=== PATIENT | male | born 1980 | race Caucasian/White ===

== ENCOUNTER → 2017-03-30 | Outpatient (CLI) | payer BC | LOC: WCC 09:05 | DX: T23.241A Burn of second degree of multiple right fingers (nail), including thumb, initial encounter (principal); T23.201A Burn of second degree of right hand, unspecified site, initial encounter; T31.0 Burns involving less than 10% of body surface; F17.200 Nicotine dependence, unspecified, uncomplicated | CPT/HCPCS: G0463 ==

== ENCOUNTER → 2017-04-05 | Outpatient (CLI) | payer BC | LOC: WCC 12:41 | DX: T23.001A Burn of unspecified degree of right hand, unspecified site, initial encounter (principal); T31.0 Burns involving less than 10% of body surface | CPT/HCPCS: G0463 ==

== ENCOUNTER 2017-12-30 10:38 | Day surgery (SDC) | payer BC ==
[~2017-12-30] VITALS: Ht 177.8 cm; Wt 78.9 kg
[2017-12-30] MEDS ORDERED: FLOMAX 0.40.4 MG/CAP PO (12:56)
[2017-12-30] MEDS ORDERED: LORTAB PO (12:57)
[2017-12-30 13:12] VITALS: BP 134/88; PULSE 63; TEMP 97.6
[2017-12-30 16:08] VITALS: TEMP 97
[2017-12-30 16:57] VITALS: PULSE 57
[2017-12-30 17:24] VITALS: BP 138/98
== END 2017-12-30 18:23 | disposition home or self-care (01) ==
LOC: SDCO 10:38 → SURG 16:50 → SDCO 18:23
DX: N20.2 Calculus of kidney with calculus of ureter (principal); Q62.5 Duplication of ureter; F17.210 Nicotine dependence, cigarettes, uncomplicated
CPT/HCPCS: OP; C1769; C2617; J0690; J1100; J1885; J2405; J2704; J3010; J7030

== ENCOUNTER 2018-01-07 12:52 | Day surgery (SDC) | payer BC ==
[~2018-01-07] VITALS: Ht 180.3 cm; Wt 77.4 kg
[~2018-01-07 12:52] MED LIST: FLOMAX 0.40.4 MG/CAP PO; LORTAB PO
[2018-01-07] MEDS ORDERED: PERCOCET 325 MG1 TA2 PO (13:30)
[2018-01-07] MEDS ORDERED: BACTRIM DS 8001 TAB PO (13:31)
[2018-01-07 14:13] VITALS: BP 115/82; PULSE 89; TEMP 97.4
[2018-01-07] MEDS ORDERED: TYLENOL 500MG500 MG PO (14:52)
[2018-01-07 17:35] VITALS: BP 128/86; PULSE 58; TEMP 97.8
[2018-01-07 17:45] VITALS: BP 113/82; PULSE 91
[2018-01-07 18:00] VITALS: BP 128/82; PULSE 86
== END 2018-01-07 18:32 | disposition home or self-care (01) ==
LOC: SDCO 12:52 → SURG 17:30 → SDCO 18:32
DX: N20.1 Calculus of ureter (principal); Q62.5 Duplication of ureter; F17.210 Nicotine dependence, cigarettes, uncomplicated; Z87.442 Personal history of urinary calculi
CPT/HCPCS: OP; C1769; C2617; J0690; J1100; J1885; J2405; J2704; J3010; J7120

== ENCOUNTER 2019-09-04 13:32 | Emergency (ER) | payer SELFPAY ==
[~2019-09-04] VITALS: Ht 177.8 cm; Wt 97.7 kg
[~2019-09-04 13:32] MED LIST changes: +BACTRIM DS 8001 TAB PO; +PERCOCET 325 MG1 TA2 PO; +TYLENOL 500MG500 MG PO
[2019-09-04 13:56] VITALS: TEMP 98.3
[2019-09-04] MEDS ORDERED: NAPRELAN500 MG PO (15:10)
[2019-09-04 15:21] VITALS: PULSE 81
== END 2019-09-04 15:22 | disposition home or self-care (01) ==
LOC: COL.ER 13:32
DX: M75.52 Bursitis of left shoulder (principal); F17.210 Nicotine dependence, cigarettes, uncomplicated; W00.0XXA Fall on same level due to ice and snow, initial encounter
CPT/HCPCS: J1885